=== PATIENT | female | born 1945 | race Caucasian/White ===

== ENCOUNTER 2021-06-19 09:29 | Emergency (ER) | payer MEDICARE, OTHER ==
[2021-06-19 10:26] LABS: BASOPHIL 0.4 % (0-2); EOSINOPHIL 0.2 % (0-7); HCT 46.4 % (37.0-47.0); HGB 15.3 g/dl (12.5-16.0); LYMPHOCYTE 19.3 % (15-48); MCV 87.9 fL (78.0-100.0); MONOCYTE 4.9 % (0-12); MPV 11.1 fL (6.0-9.5); NRBC 0; PLT 149 K/uL (150-400); RBC 5.28 M/uL (4.20-5.40); RDW 13.5 % (11.5-14.0); WBC 10.2 K/uL (4.0-10.5)
[2021-06-19 10:39] LABS: BUN/CREAT RATIO (CALC) 19.8 RATIO; CREATININE 0.96 mg/dL (0.51-0.95); POTASSIUM 4.1 mmol/L (3.5-5.1)
[2021-06-19 10:51] LABS: CKMB 3.4 ng/mL (0.0-3.6)
[2021-06-19 11:32] LABS: PROTHROMBIN TIME 12.6 SECONDS (11.8-13.4); PTT 26.9 SECONDS (24.4-34.7)
== END 2021-06-19 19:30 | disposition other institution (70) ==
LOC: FER 09:29
PROVIDERS: Emergency Medicine
DX: I21.4 Non-ST elevation (NSTEMI) myocardial infarction (principal); Z88.0 Allergy status to penicillin
CPT/HCPCS: 36415; 71046; 80048; 82553; 84484; 85025; 85610; 85730; 93005; J1644